=== PATIENT | female | born 1965 | race African-American/Black ===

== ENCOUNTER 2016-11-10 06:06 | Observation (INO) | payer BC ==
[2016-11-10] VITALS (7 sets, daily range): BP systolic 109–135; BP diastolic 67–80; PULSE 71–96; RESP 16–18; TEMP 97.9–98; O2SAT 96–100
[~2016-11-10 06:06] MED LIST: LORTA5 PO
[2016-11-10] MEDS ORDERED: NITROGLYCERIN 2% OINT 1 GM PACKET TOP ONE (06:45)
[2016-11-10] MEDS ORDERED: SODIUM CHLORIDE 0.9% FLUSH 10 ML FLUSH IVF PRN (06:45)
[2016-11-10] MEDS ORDERED: ASPIRIN 81 MG CHEW TAB PO ONE (06:45)
--- NOTE | 2016-11-10 06:58 | PD ---
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 She reports that the first episode occurred at 1 AM while she was sitting. She reports that it lasted less than 1 minute. The second episode occurred at 5 AM and was stronger and lasted for longer than a minute. She reports that that episode was associated with nausea, jaw pain, however no shortness of breath or diaphoresis. The patient denies ever having a pain like this previously. She reports that the pain as a pressure sensation in the left side of her chest. She reports that she has a family history of heart disease in her mother, however she is unsure of what type of heart disease. The patient denies ever having a stress test done previously. She denies any prior history of hypertension, hyperlipidemia, or diabetes mellitus. The patient denies any recent fevers, cough, congestion, abdominal pain, vomiting, diarrhea, urinary symptoms, or neurologic symptoms. The patient reports that she has a history of chronic constipation. She last moved her bowels yesterday. [facility]LY [facility] Past Medical History Narrative Medical The patient's past medical history is significant for none. Medical History: Denies Significant Hx Diminished Hearing: No Tetanus Vaccination: Unknown Influenza Vaccination: No ?: Not Past Surgical History Narrative Surgical The patient's past surgical history is significant for an endometrial ablation. Surgical History: No Previous Surgery Social History Alcohol Use: No Tobacco Use: No Substance Use: No Allergies-Medications (Allergen,Severity, Reaction): Coded Allergies: Sulfa (Verified Allergy, Severe, Hives, 11/10/16) Reported Meds & Prescriptions Reported Meds & Active Scripts Active No Active Prescriptions or Reported Medications Review of Systems Except as stated in HPI: all other systems reviewed are Neg General / Constitutional: No: Fever Eyes: No: Visual changes HENT: No: Headaches Cardiovascular: Positive: Chest Pain or Discomfort, Claudication, No: Palpitations Respiratory: No: Shortness of Breath Gastrointestinal: Positive: Nausea, No: Vomiting, Diarrhea, Abdominal Pain, Indigestion Genitourinary: No: Dysuria Musculoskeletal: No: Pain Skin: No Rash Neurologic: No: Weakness Psychiatric: No: Depression Endocrine: No: Polydipsia Hematologic/Lymphatic: No: Easy Bruising Physical Exam Narrative General: The patient is a well-developed well-nourished female in no acute distress. The patient reports having no chest pain at this time. Head and Neck exam: Head is normocephalic atraumatic. Eyes: EOMI, pupils are equal round and reactive to light. Nose: Midline septum with pink mucous membranes Mouth: Dentition unremarkable. Moist mucus membranes. Posterior oropharynx is not erythematous. No tonsillar hypertrophy. Uvula midline. Airway patent. Neck: No palpable lymphadenopathy. No nuchal rigidity. No thyromegaly. Cardiovascular: Regular rate and rhythm without murmurs, gallops, or rubs. Lungs: Clear to auscultation bilaterally. No wheezes, rhonchi, or rales. Abdomen: Soft, without tenderness to palpation in all 4 quadrants of the abdomen. No guarding, rebound, or rigidity. Normal bowel sounds are audible. No tenderness on palpation of McBurney's point. Negative [place] sign. Extremities: No clubbing, cyanosis, or edema. 2+ pulses in all 4 extremities. No calf tenderness on palpation. Back: No costovertebral angle tenderness to palpation. Neurologic Exam: Grossly nonfocal. Skin Exam: No rash noted. Intact skin that is warm and dry. Data Data Last Documented VS Vital Signs Date Time Temp Pulse Resp B/P Pulse Ox O2 Delivery O2 Flow Rate FiO2 11/10/16 06:47 18 98 Room Air 11/10/16 06:08 98.0 96 134/69 Orders Electrocardiogram (11/10/16 06:45) B-Type Natriuretic Peptide (11/10/16 06:45) Ckmb (Isoenzyme) Profile (11/10/16 06:45) Complete Blood Count With Diff (11/10/16 06:45) Comprehensive Metabolic Panel (11/10/16 06:45) Magnesium (Mg) (11/10/16 06:45) Prothrombin Time / Inr (Pt) (11/10/16 06:45) Act Partial Throm Time (Ptt) (11/10/16 06:45) Troponin I (11/10/16 06:45) Lipase (11/10/16 06:45) Chest, Single Ap (11/10/16 06:45) Ecg Monitoring (11/10/16 06:45) Bilateral Bp Monitoring (11/10/16 06:45) Iv Access Insert/Monitor (11/10/16 06:45) Oximetry (11/10/16 06:45) Oxygen Administration (11/10/16 06:45) Aspirin Chew (Aspirin Chew) (11/10/16 06:45) Nitroglycerin 2% Oint (Nitroglycerin 2% (11/10/16 06:45) Sodium Chloride 0.9% Flush (Ns Flush) (11/10/16 06:45) MDM Medical Decision Making Medical Screen Exam Complete: Yes Emergency Medical Condition: Yes Medical Record Reviewed: Yes Differential Diagnosis Acute coronary syndrome, versus aortic dissection, versus acid reflux Narrative Course During the course of the patients emergency department visit, the patients history, examination, and differential diagnosis were reviewed with the patient. The patient had IV access obtained and blood work sent for analysis. The patient was placed on a home sales service professional with oximetry and blood pressure monitoring. An EKG was done on arrival. The patient's EKG shows a sinus rhythm heart rate 92, no acute ST segment elevation or depression. QRS duration is 77 ms, QTC is 395 ms. The patient was initially provided aspirin 162 mg by mouth 1, nitroglycerin 1 inch the chest wall. The patients laboratory studies and radiologic studies are pending at the conclusion of my shift. The patient's case will be checked out to the oncoming emergency room physician to disposition based on the conclusion of her workup. I anticipate that the patient will be admitted to the chest pain center for rule out serial cardiac enzyme protocol and consideration of stress testing given her typical symptoms. Diagnosis Primary Impression: Chest pain, rule out acute myocardial infarction Admitting Information Admitting Physician Requests: Observation Scripts No Active Prescriptions or Reported Meds Elizabeth Gleason MD Nov 10, 2016 06:58
[2016-11-10 07:01] LABS: AUTOMATED NEUTROPHIL # 3.1 TH/MM3 (1.8-7.7); BASOPHIL % 0.6 % (0.0-2.0); EOSINOPHIL # 0.1 TH/MM3 (0-0.4); EOSINOPHIL % 1.8 % (0.0-4.0); HEMATOCRIT 37.9 % (35.0-46.0); HEMO FLAGS DIFF FINAL; LYMPH % 31.5 % (9.0-44.0); LYMPHOCYTE # 1.6 TH/MM3 (1.0-4.8); MEAN CELL VOLUME 90.1 FL (80.0-100.0); MEAN CORPUSCULAR HEMOGLOBIN 30.2 PG (27.0-34.0); MEAN CORPUSCULAR HGB CONC 33.5 % (32.0-36.0); MONO % 4.5 % (0.0-8.0); NEUT % 61.6 % (16.0-70.0); PLATELET COUNT 188 TH/MM3 (150-450); RED CELL DISTRIBUTION WIDTH 14.1 % (11.6-17.2)
[2016-11-10 07:05] LABS: APTT (PATIENT) 30.6 SEC (24.3-30.1); INTERNATIONAL NORMALIZED RATIO 0.9 RATIO; PROTHROMBIN TIME - PATIENT 10.4 SEC (9.8-11.6)
--- NOTE | 2016-11-10 07:14 | RADRPT ---
EXAM DATE/TIME: 11/10/2016 07:09 [place] COMPARISON: No previous studies available for comparison. INDICATIONS : Chest pain. MEDICAL HISTORY : None. SURGICAL HISTORY : None. ENCOUNTER: Initial ACUITY: 1 day PAIN SCORE: 7/10 LOCATION: Bilateral chest FINDINGS: A single view of the chest demonstrates the lungs to be symmetrically aerated without evidence of mas s, infiltrate or effusion. The cardiomediastinal contours are unremarkable. Osseous structures are intact. There is some hypertrophic change at the left first costochondral junction. CONCLUSION: No acute disease. Chico Hoffmann MD on November 10, 2016 at 7:12 Board Certified Radiologist. This report was verified electronically.
[2016-11-10 07:17] LABS: ALT (GPT) 24 U/L (10-53); ANION GAP 8 MEQ/L (5-15); AST (GOT) 14 U/L (15-37); BICARBONATE 24.5 MEQ/L (21.0-32.0); BLOOD UREA NITROGEN 11 MG/DL (7-18); CHLORIDE 105 MEQ/L (98-107); GLOMERULAR FILTRATION RATE 81 ML/MIN (>89); MAGNESIUM 2.2 MG/DL (1.5-2.5); POTASSIUM 3.7 MEQ/L (3.5-5.1); SODIUM (NA) 137 MEQ/L (136-145)
[2016-11-10 07:20] LABS: ALKALINE PHOSPHATASE 114 U/L (45-117); CREATINE KINASE 108 U/L (26-192); TOTAL BILIRUBIN ADULT 0.2 MG/DL (0.2-1.0)
[2016-11-10 07:32] LABS: CKMB LESS THAN 0.5 NG/ML (0.5-3.6)
--- NOTE | 2016-11-10 07:42 | PD ---
Physical Exam Date Seen by Provider: Nov 10, 2016 Time Seen by Provider: 07:00 Narrative Patient signed out to me at [address] Gleason, please see previous notes for further details. Awaiting lab work for further evaluation. Laboratory Tests Test 11/10/16 06:48 Activated Partial 30.6 SEC Thromboplast Time (24.3-30.1) Estimat Glomerular Filtration 81 ML/MIN (>89) Rate Aspartate Amino Transf 14 U/L (15-37) (AST/SGOT) Creatine Kinase MB LESS THAN 0.5 NG/ML (0.5-3.6) Troponin I LESS THAN 0.02 NG/ML (0.02-0.05) Last 24 hours Impressions Chest X-Ray 11/10/1645 Signed Impressions: Service Date/Time: Thursday, November 10, 2016 07:09 - CONCLUSION: No acute disease. Chico Hoffmann MD Cardiac enzymes and chest x-ray did not reveal any signs of acute problems. At this point, my plan would be to admit the patient to chest pain center as previously discussed with Dr. Gleason. Data Data Last Documented VS Vital Signs Date Time Temp Pulse Resp B/P Pulse Ox O2 Delivery O2 Flow Rate FiO2 11/10/16 07:04 85 16 135/80 Room Air 11/10/16 06:47 98 11/10/16 06:08 98.0 Orders Electrocardiogram (11/10/16 06:45) B-Type Natriuretic Peptide (11/10/16 06:45) Ckmb (Isoenzyme) Profile (11/10/16 06:45) Complete Blood Count With Diff (11/10/16 06:45) Comprehensive Metabolic Panel (11/10/16 06:45) Magnesium (Mg) (11/10/16 06:45) Prothrombin Time / Inr (Pt) (11/10/16 06:45) Act Partial Throm Time (Ptt) (11/10/16 06:45) Troponin I (11/10/16 06:45) Lipase (11/10/16 06:45) Chest, Single Ap (11/10/16 06:45) Ecg Monitoring (11/10/16 06:45) Bilateral Bp Monitoring (11/10/16 06:45) Iv Access Insert/Monitor (11/10/16 06:45) Oximetry (11/10/16 06:45) Oxygen Administration (11/10/16 06:45) Aspirin Chew (Aspirin Chew) (11/10/16 06:45) Nitroglycerin 2% Oint (Nitroglycerin 2% (11/10/16 06:45) Sodium Chloride 0.9% Flush (Ns Flush) (11/10/16 06:45) CKMB (11/10/16 06:48) CKMB% (11/10/16 06:48) Admit Order (Ed Use Only) (11/10/16 07:35) Labs Laboratory Tests Test 11/10/16 06:48 White Blood Count 5.0 TH/MM3 Red Blood Count 4.20 MIL/MM3 Hemoglobin 12.7 GM/DL Hematocrit 37.9 % Mean Corpuscular Volume 90.1 FL Mean Corpuscular Hemoglobin 30.2 PG Mean Corpuscular Hemoglobin 33.5 % Concent Red Cell Distribution Width 14.1 % Platelet Count 188 TH/MM3 Mean Platelet Volume 9.6 FL Neutrophils (%) (Auto) 61.6 % Lymphocytes (%) (Auto) 31.5 % Monocytes (%) (Auto) 4.5 % Eosinophils (%) (Auto) 1.8 % Basophils (%) (Auto) 0.6 % Neutrophils # (Auto) 3.1 TH/MM3 Lymphocytes # (Auto) 1.6 TH/MM3 Monocytes # (Auto) 0.2 TH/MM3 Eosinophils # (Auto) 0.1 TH/MM3 Basophils # (Auto) 0.0 TH/MM3 CBC Comment DIFF FINAL Differential Comment Prothrombin Time 10.4 SEC Prothromb Time International 0.9 RATIO Ratio Activated Partial 30.6 SEC Thromboplast Time Sodium Level 137 MEQ/L Potassium Level 3.7 MEQ/L Chloride Level 105 MEQ/L Carbon Dioxide Level 24.5 MEQ/L Anion Gap 8 MEQ/L Blood Urea Nitrogen 11 MG/DL Creatinine 0.89 MG/DL Estimat Glomerular Filtration 81 ML/MIN Rate Random Glucose 91 MG/DL Calcium Level 8.6 MG/DL Magnesium Level 2.2 MG/DL Total Bilirubin 0.2 MG/DL Aspartate Amino Transf 14 U/L (AST/SGOT) Alanine Aminotransferase 24 U/L (ALT/SGPT) Alkaline Phosphatase 114 U/L Total Creatine Kinase 108 U/L Creatine Kinase MB LESS THAN 0.5 NG/ML Troponin I LESS THAN 0.02 NG/ML B-Type Natriuretic Peptide LESS THAN 2 PG/ML Total Protein 7.9 GM/DL Albumin 3.9 GM/DL Lipase 171 U/L MDM Medical Record Reviewed: Yes Supervised Visit with MARIAJOSE: No Diagnosis Primary Impression: Chest pain, rule out acute myocardial infarction Admitting Information Admitting Physician Requests: Admit Scripts No Active Prescriptions or Reported Meds Derian Story MD Nov 10, 2016 07:42
[2016-11-10] MEDS ORDERED: SODIUM CHLORIDE 0.9% FLUSH 5 ML FLUSH IVF PRN (11:00)
[2016-11-10] MEDS ORDERED: ACETAMINOPHEN 500 MG CPLT PO PRN (11:00)
[2016-11-10] MEDS ORDERED: ACETAMINOPHEN/HYDROcodone 325 MG/7.5 MG TAB PO PRN (11:00)
[2016-11-10] MEDS ORDERED: ONDANSETRON HCL 4 MG/2 ML VIAL IV PRN (11:00)
--- NOTE | 2016-11-10 11:17 | HHI.HP ---
HPI Primary Care Physician No Primary Care Physician Chief Complaint Chest pain History of Present Illness This is a 51-year-old female that presents to ED via private vehicle complaining of having 2 episodes of sharp chest discomfort while workup. She states the first episode began around 1:00 this morning. She was sitting. There was a sharp pain across the entire chest. Last a little less than a minute. Denies associated shortness of breath, nausea, or shortness of breath. Then around 5:00 this morning while at work sitting at the computer she will do similar discomfort. Was sharp. However this time it radiated up into her jaw extender nauseous and diaphoretic. No shortness of breath. No emesis. It lasted about a minute. She's never had these before. Cannot recall prior stress testing. Review of Systems General: Patient denies fevers, chills recent, and recent travel HEENT: Patient denies headache, sore throat, difficulty swallowing. Cardiovascular: Has the chest discomfort as mentioned above. Denies sensation of heart beating rapidly or irregularly. No syncope. She had diaphoresis on the second episode discomfort this morning. Respiratory: Denies shortness of breath or inspirational chest discomfort. Denies coughing wheezing or hemoptysis. GI: She was nauseous with a second episode of discomfort this morning. Patient denies vomiting, diarrhea, abdominal pain, bloody stools. Musculoskeletal: Patient denies joint pain or edema. Denies calf pain or edema. Neurovascular: Patient denies numbness, tingling, weakness in extremities. Denies headache. Endocrine: Denies polyuria and polydipsia. Hematologic: Denies easy bruising. Skin: Denies rash or itching. Past Family Social History Allergies: Coded Allergies: Sulfa (Verified Allergy, Severe, Hives, 11/10/16) Past Medical History Denies hypertension, hyperlipidemia, diabetes, and known CAD. Past Surgical History Denies. Reported Medications Reported Meds & Active Scripts Active No Active Prescriptions or Reported Medications Active Ordered Medications Current Medications Medications (Trade) Dose Ordered Sig/Gerald Route Start Time Stop Time Status Last Admin (NS Flush) 2 ml UNSCH PRN IVF 11/10/16 11:00 UNV (NS Flush) 2 ml BID IVF 11/10/16 21:00 UNV (Tylenol) 500 mg Q4H PRN PO 11/10/16 11:00 UNV ([place] 7.5-325 Mg) 1 tab Q4H PRN PO 11/10/16 11:00 UNV (Zofran Inj) 4 mg Q6H PRN IV 11/10/16 11:00 UNV Family History Denies family history of CAD. Her mother has atrial fibrillation. Social History Patient is a nonsmoker. Denies alcohol or illicit drugs. Physical Exam Vital Signs Vital Signs Date Time Temp Pulse Resp B/P Pulse Ox O2 Delivery O2 Flow Rate FiO2 11/10/16 11:05 96 21 11/10/16 08:45 97.9 71 18 113/68 100 11/10/16 07:04 85 16 135/80 100 Room Air 11/10/16 06:47 18 98 Room Air 11/10/16 06:08 98.0 96 16 134/69 100 Physical Exam GENERAL: This is a well-nourished, well-developed patient, in no apparent distress. Patient speaks in clear complete sentences. Patient is pleasant. Her family is at the bedside as well. HEENT: Head is atraumatic and normocephalic. Neck is supple without lymphadenopathy and trachea is midline. No JVD or carotid bruits. CARDIOVASCULAR: Regular rate and rhythm without murmurs, gallops, or rubs. RESPIRATORY: Clear to auscultation. Breath sounds equal bilaterally. No wheezes , rales, or rhonchi. Chest wall is nontender. No use of accessory muscles. GASTROINTESTINAL: Abdomen is nontender, nondistended. Abdomen soft. No obvious pulsatile mass or bruit. No CVA tenderness. Strong femoral pulses bilaterally. Normal bowel sounds in all quadrants. MUSCULOSKELETAL: Patient is moving upper and lower extremities freely. No calf tenderness or edema, no Homans sign. Strong pulses in upper and lower extremities. NEUROLOGICAL: Patient is alert and oriented. Cranial nerves 2-12 are grossly intact. No focal deficits and speech is clear. SKIN: No rash and turgor is normal. Laboratory Laboratory Tests Test 11/10/16 11/10/16 06:48 09:53 White Blood Count 5.0 Red Blood Count 4.20 Hemoglobin 12.7 Hematocrit 37.9 Mean Corpuscular Volume 90.1 Mean Corpuscular Hemoglobin 30.2 Mean Corpuscular Hemoglobin 33.5 Concent Red Cell Distribution Width 14.1 Platelet Count 188 Mean Platelet Volume 9.6 Neutrophils (%) (Auto) 61.6 Lymphocytes (%) (Auto) 31.5 Monocytes (%) (Auto) 4.5 Eosinophils (%) (Auto) 1.8 Basophils (%) (Auto) 0.6 Neutrophils # (Auto) 3.1 Lymphocytes # (Auto) 1.6 Monocytes # (Auto) 0.2 Eosinophils # (Auto) 0.1 Basophils # (Auto) 0.0 CBC Comment DIFF FINAL Differential Comment Prothrombin Time 10.4 Prothromb Time International 0.9 Ratio Activated Partial 30.6 Thromboplast Time Sodium Level 137 Potassium Level 3.7 Chloride Level 105 Carbon Dioxide Level 24.5 Anion Gap 8 Blood Urea Nitrogen 11 Creatinine 0.89 Estimat Glomerular Filtration 81 Rate Random Glucose 91 Calcium Level 8.6 Magnesium Level 2.2 Total Bilirubin 0.2 Aspartate Amino Transf 14 (AST/SGOT) Alanine Aminotransferase 24 (ALT/SGPT) Alkaline Phosphatase 114 Total Creatine Kinase 108 95 Creatine Kinase MB LESS THAN 0.5 Troponin I LESS THAN 0.02 LESS THAN 0.02 B-Type Natriuretic Peptide LESS THAN 2 Total Protein 7.9 Albumin 3.9 Lipase 171 Result Diagram: 11/10/16 0648 11/10/16 0648 Imaging Last 24 hours Impressions Chest X-Ray 11/10/16 0645 Signed Impressions: Service Date/Time: Thursday, November 10, 2016 07:09 - CONCLUSION: No acute disease. Chico Hoffmann MD Course First EKGs have sinus rhythm without significant ST segment depressions or elevations. Assessment and Plan Assessment and Plan * Atypical chest pain: Patient will continue to have serial cardiac enzymes and EKGs for ruling out purposes. She will be seen by Dr. Roland cardiology in the chest pain center. She will undergo a Diego protocol ETT. She'll be discharged home if her stress test is nonischemic with instructions to follow- up with her primary care physician. Marshall Ramirez Nov 10, 2016 11:17
[2016-11-10 13:10] LABS: CREATINE KINASE 98 U/L (26-192)
--- NOTE | 2016-11-10 14:31 | HHI.DCPOC ---
Discharge Care Plan Diagnosis: (1) Chest pain, atypical Goals to Promote Your Health * To prevent worsening of your condition and complications * To maintain your health at the optimal level Directions to Meet Your Goals Take your medications as prescribed Follow your dietary instruction Follow activity as directed Keep your appointments as scheduled Take your immunizations and boosters as scheduled If your symptoms worsen call your PCP, if no PCP go to Urgent Care Center or Emergency Room Smoking is Dangerous to Your Health. Avoid second hand smoke Call the 24-hour hour crisis hotline for domestic abuse at Marshall Ramirez Nov 10, 2016 14:31
--- NOTE | 2016-11-10 14:33 | EKG ---
Date Performed: 11/10/2016 Time Performed: 10:11:02 PTAGE: 51 years EKG: Sinus rhythm NORMAL ECG PREVIOUS TRACING : 11/10/2016 06.24 Compared to prior tracing no significant change DOCTOR: Curt Dodson Interpretating Date/Time 11/10/2016 14:32:43
--- NOTE | 2016-11-10 15:56 | EKG ---
Date Performed: 11/10/2016 Time Performed: 06:24:07 PTAGE: 51 years EKG: Sinus rhythm Nonspecific ST and T wave abnormalities PREVIOUS TRACING : 06/21/2010 22.39 Compared to prior tracing no significant change DOCTOR: Curt Dodson Interpretating Date/Time 11/10/2016 15:54:03
--- NOTE | 2016-11-10 17:24 | TR ---
Date Performed: 11/10/2016 Time Performed: 14:11:08 DOCTOR: Yanna Roland DRUG LIST: CLINICAL HISTORY: CHEST PAIN REASON FOR TEST: REASON FOR ENDING: OBSERVATION: CONCLUSION: TIO PROTOCOL. NO CP. TEST STOPPED AFTER EXCEEDING GOAL HR SECONDARY TO SOB AND LEG FATIGUE.Maximum SN=458 Max HR Achieved=91.0% Maximum WN=567/70 Total Exercise Time=4:01 COMMENTS:
[2016-11-10] MEDS ORDERED: SODIUM CHLORIDE 0.9% FLUSH 5 ML FLUSH IVF SCH (21:00)
--- NOTE | 2016-11-11 17:05 | EKG ---
Date Performed: 11/10/2016 Time Performed: 12:34:06 PTAGE: 51 years EKG: Sinus rhythm NORMAL ECG Since PREVIOUS TRACING , no significant change noted PREVIOUS TRACIN11/10/2016 10.11 DOCTOR: Yanna Roland Interpretating Date/Time 11/11/2016 17:04:32
== END 2016-11-10 18:32 | disposition home or self-care (01) ==
LOC: NEPE 06:06 → NEDA 07:37 → NEPHCDU 08:40
PROVIDERS: ADMIT Internal Medicine Interventional Cardiology; ATTEND Internal Medicine Interventional Cardiology
CPT/HCPCS: 71010 ×2; 80053 ×2; 82550 ×2; 82552 ×2; 83690 ×2; 83735 ×2; 83880 ×2; 84484 ×2; 85025 ×2; 85610 ×2; 85730 ×2; 93005 ×2; 93017 ×2; 99285 ×2; G0378